=== PATIENT | female | born 1960 | race Caucasian/White ===

== ENCOUNTER 2019-04-12 13:16 | Day surgery (SDC) | payer BC ==
[~2019-04-12] VITALS: Ht 167.6 cm; Wt 69.0 kg
[~2019-04-12 13:16] MED LIST: GLIPIZIDE XL5 MG PO; GLUCOPHAGE1000 MG PO; LISINOPRIL5 MG PO; NORCO 5-325 TA1 EACH PO; PROTONIX40 MG PO; SIMVASTATIN40 MG PO; VITAMIN C1000 M2 PO; VITAMIN D2000 UNI1 PO; ZESTRIL5 MG PO; ZOFRAN ODT8 MG PO
--- NOTE | 2019-04-12 16:40 | NUR ---
04/12/19 1640 Nga Erickson 1606 PT ARRIVED IN PACU SLEEPY WITH NO C/O'S. 1615 DR AT BEDSIDE TALKING WITH PT. C/O ABD PAIN. ENCOURAGED TO PASS FLATUS. 1620 REPOSITIONED TO R SIDE AND PASSING FLATUS. 1630 UP TO BATHROOM. VOIDED AND PASSING FLATUS. BACK AT BEDSIDE SIPPING ON JUICE.
--- NOTE | 2019-04-13 22:02 | OR ---
[facility] [address] [place], [place] [address] Signed DATE OF OPERATION: 04/12/2019 SURGEON: Carter Mancuso MD PREOPERATIVE DIAGNOSIS: History of tubular adenoma of sigmoid in 2016. POSTOPERATIVE DIAGNOSIS: Normal colon to cecum. PROCEDURE PERFORMED: Total colonoscopy to cecum. ANESTHESIA: Intravenous sedation, fentanyl 150 mcg and versed 4 mg. INDICATION: This 58-year-old white woman is a patient of Dr. Avery and Dr. Wheatley. She underwent colonoscopy by me in 2015, at which time, she was found to have a tubular adenoma of the sigmoid. She has no symptoms of bleeding, diarrhea, or constipation, but does have family history of colon cancer in her paternal grandmother. She is currently without signs or symptoms of bleeding, diarrhea, or constipation. She is admitted to undergo surveillance colonoscopy, understand the risk of bleeding, infection, and perforation. FINDINGS: The prep was excellent. Complete colonoscopy was undertaken to the cecum without question. She had no sign of diverticular formation, colitis, cancer, or polyps. DESCRIPTION OF PROCEDURE: The patient was brought to the endoscopy suite and placed in lateral decubitus position, given intravenous sedation to the point of slurred speech and nystagmus. Digital rectal examination was normal. The Olympus video colonoscope was passed in the rectum and manipulated throughout the colon ultimately intubating the cecum itself. The ileocecal valve and appendiceal orifice were normal. Scope was withdrawn from that point and examination throughout showed no sign of abnormality specifically no polyps, diverticular formation, colitis, or cancer. Retroflex view was normal as well. Scope was removed. The patient was taken to recovery room in good condition. Electronically Signed By: CARTER MANCUSO MD 04/13/19 2205 PATIENT NAME: CRIS GASTELUM OPERATIVE REPORT DATE OF : 56 REPORT #: [id number] PHYSICIAN: CARTER MANCUSO MD PCP: BRUNILDA AVERY MD REPORT IS CONFIDENTIAL AND NOT TO BE RELEASED WITHOUT AUTHORIZATION [facility] [address] [facility] [place], [place] [address] Signed CONCLUDING DIAGNOSIS: Normal colon to cecum. PLAN: Recommend repeat colonoscopy in 10 years, sooner if clinically indicated. She will return to the ongoing care of Dr. Avery and Dr. Wheatley. MD DARCY Alfred/MODL /[id number] cc: MD Brunilda Mejia MD Copies: KALPANA WHEATLEY MD, JONATHAN MD ~ Electronically Signed By: CARTER MANCUSO MD 04/13/19 2202 PATIENT NAME: CRIS GASTELUM OPERATIVE REPORT DATE OF : 56 REPORT #: [id number] PHYSICIAN: CARTER MANCUSO MD PCP: BRUNILDA AVERY MD REPORT IS CONFIDENTIAL AND NOT TO BE RELEASED WITHOUT AUTHORIZATION
== END 2019-04-12 16:55 | disposition home or self-care (01) ==
LOC: OPS 13:16 → DS 14:45 → OPS 16:55
PROVIDERS: Surgery
PROC: 0DJD8ZZ Inspection of Lower Intestinal Tract, Via Natural or Artificial Opening Endoscopic (ICD-10-PCS; principal; 2019-04-12 14:45)
DX: Z12.11 Encounter for screening for malignant neoplasm of colon (principal); E11.9 Type 2 diabetes mellitus without complications; Z86.010 Personal history of colon polyps; Z88.2 Allergy status to sulfonamides; Z79.899 Other long term (current) drug therapy; Z79.84 Long term (current) use of oral hypoglycemic drugs
CPT/HCPCS: 99153; G0500; J2250; J3010; J7121

== ENCOUNTER 2021-01-02 06:02 | Day surgery (SDC) | payer BC ==
[~2021-01-02] VITALS: Ht 167.6 cm; Wt 73.0 kg
[~2021-01-02 06:02] MED LIST changes: +ESTRADIOL1 MG PO; +FISH OIL 1,0001 EAC2 NG; +HYDROCHLOROTH12.5 M1 PO; +NEXIUM40 MG PO; +TRULICITY1.5 MG/0.5 SQ; +VITAMIN C500 M5 PO; +XANAX0.5 MG PO; +ZINC50 M1 PO
--- NOTE | 2021-01-02 06:25 | NUR ---
PT WAS SWABBED FOR COVID 19
--- NOTE | 2021-01-02 09:23 | NUR ---
01/02/21 0923 Pippa Thompson 0920- PT TO PACU IN SF POSITION. EYES OPEN, PT ASKING QUESTIONS ABOUT PROCEDURE. PT DENIES PAIN AND NAUSEA. SPO2 >95% ON 3L O2 VIA NC. PT EDUCATED ABOUT PLAN OF CARE FOR PACU AND DC CRITERION.
--- NOTE | 2021-01-02 10:01 | OR ---
[facility] [address] [place], [place] [address] Signed DATE OF OPERATION: 01/02/2021 SURGEON: Antonietta Berg MD PREOPERATIVE DIAGNOSES: 1. Gastroesophageal reflux disease. 2. Heartburn. POSTOPERATIVE DIAGNOSES: 1. Mild diffuse gastritis. 2. GE junction at 35 cm. PROCEDURE: EGD with CLOtest and biopsies of the antrum. ESTIMATED BLOOD LOSS: None. INDICATIONS: Cris is a 60-year-old female, asked to see me for upper endoscopy. She has been through 2 previous colonoscopies and therefore she is familiar with this process. She is known to have acid reflux. While in [place], she took Nexium. She said it worked out very well. When she got back to the stage, she had stopped the Nexium. Of course, the acid reflux returned. She said she is having heartburn and feeling in her mouth. In the office, I gave her a pamphlet on upper endoscopy. She understands the nature of the test along with the risks including, but not limited to gas bloating, crampy abdominal pain, bleeding, perforation requiring surgery, and missed diagnosis. She also understands the need for IV conscious sedation. She had expressed understanding and wished to proceed. PROCEDURE NOTE: Cris was taken into our endoscopy suite and placed in the supine semi-recumbent position. She was given IV sedation with 3 mg of Versed and 100 mcg of fentanyl. The posterior oropharynx was anesthetized with lidocaine spray. A bite block was utilized for the case. The adult gastroscope was introduced and advanced all the way out into the third portion of the duodenum under direct visualization of camera without difficulty. The duodenum and pyloric channel were unremarkable. Her stomach showed mild erythematous changes throughout. No ulcerations. Upon retroflexion of the scope, she has no hiatal hernia. She may have just a short lower esophageal sphincter. There were no gastric or esophageal varices. The scope was then withdrawn up through the area Electronically Signed By: ANTONIETTA BERG MD 01/02/21 1001 PATIENT NAME: CRIS GASTELUM OPERATIVE REPORT DATE OF : 56 REPORT #: [id number] PHYSICIAN: ANTONIETTA BERG MD PCP: BRUNILDA AVERY MD REPORT IS CONFIDENTIAL AND NOT TO BE RELEASED WITHOUT AUTHORIZATION [facility] [address] [place], [place] [address] Signed of the GE junction, which was compliant without stricture. Very minimal disruption to her Z-line. No Us's mucosa. No distal esophagitis. The middle and upper esophagus were unremarkable. After this, the gas was suctioned out and the gastroscope removed. Cris tolerated the procedure quite well. RECOMMENDATIONS: I will see Cris back in my office in 7 to 14 days to review her results. She certainly can continue proton pump inhibitor. However, she might do fine with an H2 sabino. Antonietta Berg MD ALB/MODL /[id number] cc: Brunilda Avery MD Chart Filed Incomplete Antonietta Berg MD Copies: BRUNILDA AVERY MD CHART FILED INCOMPLETE ANTONIETTA BERG MD ~ Electronically Signed By: ANTONIETTA BERG MD 01/02/21 1001 PATIENT NAME: CRIS GASTELUM OPERATIVE REPORT DATE OF : 56 REPORT #: [id number] PHYSICIAN: ANTONIETTA BERG MD PCP: BRUNILDA AVERY MD REPORT IS CONFIDENTIAL AND NOT TO BE RELEASED WITHOUT AUTHORIZATION
--- NOTE | 2021-01-03 11:19 | PATH ---
[facility] [address] [place], [place] [address] Signed SPECIMEN(S): A ANTRUM BIOPSY SPECIMEN SOURCE: A. ANTRUM BIOPSY CLINICAL HISTORY: EGD with biopsy: GERD. Postop: Mild gastritis. MICROSCOPIC DESCRIPTION: Histologic sections of all submitted blocks are examined by light microscopy. These findings, together with the gross examination, support the pathologic diagnosis. FINAL PATHOLOGIC DIAGNOSIS: Stomach, antrum, biopsy: - Antral mucosa with chronic, inactive gastritis. - Negative for Helicobacter organisms on HE stain. - Negative for dysplasia or malignancy. NAL:cml:C2NR GROSS DESCRIPTION: The specimen, labeled "MR, antrum biopsy," is received in formalin and consists of one dubon soft tissue fragment that measures 0.2 cm in greatest dimension. The specimen is entirely submitted in cassette (A1). JS (under the direct supervision of a pathologist) The Gross Description was prepared using a voice recognition system. The report was reviewed for accuracy; however, sound-alike word errors, addition and/or deletions may occur. If there is any question about this report, please contact Client Services. PERFORMING LABORATORY: The technical component was performed by [facility], [address] [place] [id number] (Chemical Operations Specialist: Angela Davis MD; CLIA# [id number]). [facility], [address] [address] (CLIA# [id number]). Diagnostician: Skyla Leach MD Pathologist Electronically Signed 01/03/2021 PATIENT NAME: CRIS GASTELUM PATHOLOGY DATE OF : 56 REPORT #: [id number] PHYSICIAN: RUSTAM PATHOLOGY PCP: BRUNILDA DARKE MD REPORT IS CONFIDENTIAL AND NOT TO BE RELEASED WITHOUT AUTHORIZATION [address] [place], [place] [address] Signed Copies: ~ PATIENT NAME: CRIS GASTELUM PATHOLOGY DATE OF : 56 REPORT #: [id number] PHYSICIAN: RUSTAM PATHOLOGY PCP: BRUNILDA DRAKE MD REPORT IS CONFIDENTIAL AND NOT TO BE RELEASED WITHOUT AUTHORIZATION
== END 2021-01-02 09:45 | disposition home or self-care (01) ==
LOC: DS 06:02 → OPS 06:02 → DS 06:45 → OPS 06:45
PROVIDERS: ATTEND Colon & Rectal Surgery
PROC: 0DB68ZX Excision of Stomach, Via Natural or Artificial Opening Endoscopic, Diagnostic (ICD-10-PCS; principal; 2021-01-02 07:30)
DX: K21.9 Gastro-esophageal reflux disease without esophagitis (principal); K29.50 Unspecified chronic gastritis without bleeding; I10 Essential (primary) hypertension; E11.9 Type 2 diabetes mellitus without complications; E78.00 Pure hypercholesterolemia, unspecified; Z79.84 Long term (current) use of oral hypoglycemic drugs; Z88.2 Allergy status to sulfonamides; Z20.822 Contact with and (suspected) exposure to COVID-19
CPT/HCPCS: G0500; J2250; J3010; J7121; U0003